=== PATIENT | male | born 1990 | race African-American/Black ===

== ENCOUNTER 2021-02-22 01:17 | Emergency (ER) | payer OTHER ==
[2021-02-22 01:40] VITALS: BP 127/70; PULSE 98; TEMP 97.6; BMI 32.4
[2021-02-22] MEDS ORDERED: CEPHALEXIN MONOHYDRATE 500 MG CAPSULE (UD) PO ONE (01:40)
[2021-02-22] MEDS ORDERED: DIPHTH,PERTUSS(ACELL),TET 0.5 ML DISP.SYRIN IM ONE (01:40)
[2021-02-22] MEDS ORDERED: CEPHALEXIN MONOHYDRATE 500 MG CAPSULE (UD) ONE (02:49)
== END 2021-02-22 03:07 | disposition home or self-care (01) ==
LOC: JER 01:17
PROC: 3E0234Z Introduction of Serum, Toxoid and Vaccine into Muscle, Percutaneous Approach (ICD-10-PCS; principal; 2021-02-22)
DX: S61.219A Laceration without foreign body of unspecified finger without damage to nail, initial encounter (principal); W26.0XXA Contact with knife, initial encounter; Y93.G1 Activity, food preparation and clean up
CPT/HCPCS: 99284-25